=== PATIENT | male | born 1935 | race Caucasian/White ===

== ENCOUNTER 2022-09-09 11:28 | Emergency (ER) | payer MEDICARE, OTHER ==
[~2022-09-09] VITALS: Ht 172.7 cm; Wt 60.0 kg
[~2022-09-09 11:28] MED LIST: ACET-2119 PO; ALLO300T8 PO; ASPI-1264 PO; ATOR40TA7 PO; ERGO500014; HYDR12.5 PO; INSU100V9; LOP25T PO; LOSA50TA64 PO; SODI650T29
[2022-09-09 12:35] LABS: BASOPHILS % (AUTO) 0.5 % (0-1); EOSINOPHILS % (AUTO) 0.6 % (0-6); HEMATOCRIT 33.8 % (42.0-52.0); HEMOGLOBIN 10.9 g/dl (14.0-17.9); LYMPHOCYTES # (AUTO) 0.8 X10'3 (1.1-4.8); LYMPHOCYTES % (AUTO) 13.4 % (21-51); MEAN CORPUSCULAR HEMOGLOBIN 28.6 PG (27.0-31.0); MEAN CORPUSCULAR HGB CONC 32.1 g/dL (33.0-36.5); MEAN CORPUSCULAR VOLUME 89.1 FL (78-98); MEAN PLATELET VOLUME 7.3 FL (7.4-10.4); MONOCYTES # (AUTO) 0.6 X10'3 (0-0.9); MONOCYTES % (AUTO) 10.1 % (2-12); NEUTROPHILS # (AUTO) 4.7 X10'3 (1.8-7.7); NEUTROPHILS % (AUTO) 75.4 % (42-75); PLATELET COUNT 269 X10'3 (140-440); RED BLOOD COUNT 3.79 X10'6 (4.70-6.10); RED CELL DISTRIBUTION WIDTH 17.2 % (11.5-14.5); WHITE BLOOD COUNT 6.2 X10'3 (4.5-11.0)
[2022-09-09 12:47] LABS: ALANINE AMINOTRANSFERASE 14 U/L (12-78); ALBUMIN 2.9 G/DL (3.4-5.0); ALBUMIN/GLOBULIN RATIO 0.6 (1.1-1.5); ALKALINE PHOSPHATASE 100 IU/L (46-116); ANION GAP 8 (8-16); ASPARTATE AMINO TRANSFERASE 25 U/L (10-37); BILIRUBIN,TOTAL 0.3 MG/DL (0.1-1.0); BLOOD UREA NITROGEN 64 MG/DL (7-18); BUN/CREATININE RATIO 19.2 (5.4-32.0); CHLORIDE 105 MMOL/L (99-107); CREATININE 3.33 MG/DL (0.60-1.10); GLUCOSE 213 MG/DL (70-104); POTASSIUM 5.3 MMOL/L (3.5-5.1); SODIUM 136 MMOL/L (135-145); TOTAL CARBON DIOXIDE 22.8 MMOL/L (24-32); TOTAL PROTEIN 7.5 G/DL (6.4-8.2); eGFR 18 ML/MIN
[2022-09-09 13:09] LABS: CLARITY,URINE CLEAR (Clear); COLOR,URINE YELLOW (Yellow); GLUCOSE, URINE 250 mg/dl (Neg); KETONES,URINE NEGATIVE (Neg); LEUKOCYTE ESTERASE ,URINE NEGATIVE (Neg); NITRITES, URINE NEGATIVE (Neg); OCCULT BLOOD,URINE SMALL (Neg); PH,URINE 6.5 (4.8-8.0); PROTEIN,URINE >=300 mg/dl (Neg); UROBILINOGEN,URINE 0.2 E.U/dL (0.2-1.0)
[2022-09-09 13:14] LABS: UA COLLECTION TYPE STRAIGHT CATH
[2022-09-09 13:25] LABS: BACTERIA,URINE FEW /HPF (Neg); FINE GRANULAR CAST 0-3 /LPF (NEGATIVE); HYALINE CASTS 0-3 /LPF (NEGATIVE); MUCUS STRANDS FEW /LPF (Neg); RBC,URINE 0-2 /HPF (0-2); RENAL CELLS, URINE FEW /HPF; SQUAMOUS EPITHELIAL CELL,UR FEW /LPF (FEW); WBC,URINE 0-4 /HPF (0-4)
--- NOTE | 2022-09-09 13:57 | NUR ---
Pt's daughter updated about pt being d/c
--- NOTE | 2022-09-09 14:00 | NUR ---
[place], Med tech @ [facility] made aware of pt's d/c.
--- NOTE | 2022-09-09 14:05 | NUR ---
Facility sending their van to [facility] patient per radiology receptionist Eleonora.
[2022-09-09 14:14] VITALS: BP 156/79
[2022-09-12] MEDS ORDERED: GABA300C PO (14:38)
[2022-09-12] MEDS ORDERED: APIX2.5T PO (14:38)
[2022-09-12] MEDS ORDERED: CARV6.253 PO (14:38)
[2022-09-12] MEDS ORDERED: ALLO100T PO (14:38)
[2022-09-12] MEDS ORDERED: ROSU20TA31 PO (14:38)
[2022-09-12] MEDS ORDERED: NIAC-34 PO (14:38)
[2022-09-12] MEDS ORDERED: LANTUS SQ (14:38)
[2022-09-12] MEDS ORDERED: OMEP20CA16 PO (14:38)
== END 2022-09-09 14:51 | disposition home or self-care (01) ==
LOC: ER 11:28
DX: R45.1 Restlessness and agitation (principal); E11.22 Type 2 diabetes mellitus with diabetic chronic kidney disease; N18.9 Chronic kidney disease, unspecified; Z79.85 Long-term (current) use of injectable non-insulin antidiabetic drugs; Z98.890 Other specified postprocedural states; Z79.82 Long term (current) use of aspirin; Z79.4 Long term (current) use of insulin; Z79.899 Other long term (current) drug therapy
CPT/HCPCS: 36415; 80053; 81001; 84145; 85025; 99283